=== PATIENT | male | born 1980 | race Caucasian/White ===

== ENCOUNTER 2016-12-08 05:32 | Emergency (ER) | payer OTHER ==
[2016-12-08] MEDS ORDERED: NORMAL SALINE 1000 ML 1,000 ML IV ONE (06:14)
[2016-12-08 07:16] LABS: ABSOLUTE BASOPHILS # (AUTO) 0.1 10^3/uL (0.0-0.2); ABSOLUTE EOSINOPHILS # (AUTO) 0.3 10^3/uL (0.0-0.6); ABSOLUTE LYMPHOCYTES (AUTO) 2.3 10^3/uL (0.5-4.7); ABSOLUTE MONOCYTES (AUTO) 0.7 10^3/uL (0.1-1.4); ABSOLUTE NEUT (AUTO) 5.2 10^3/uL (1.7-8.2); BASOPHILS % (AUTO) 1.1 % (0-2); EOSINOPHILS % (AUTO) 3.8 % (0-6); HEMATOCRIT 42.6 % (37.9-51.0); HGB HCT DIFFERENCE 2.4; LYMPHOCYTES % (AUTO) 26.6 % (13-45); MEAN CORPUSCULAR HEMOGLOBIN 32.9 pg (27.0-33.4); MEAN CORPUSCULAR HGB CONC 35.3 g/dL (32.0-36.0); MEAN CORPUSCULAR VOLUME 93 fl (80-97); MONOCYTES % (AUTO) 7.8 % (3-13); RED BLOOD COUNT 4.56 10^6/uL (4.35-5.55); RED CELL DISTRIBUTION WIDTH 13.2 % (11.5-14.0); SEGMENTED NEUTROPHILS % (AUTO) 60.7 % (42-78); WHITE BLOOD COUNT 8.6 10^3/uL (4.0-10.5)
[2016-12-08 07:23] LABS: APPEARANCE,URINE CLEAR; BILIRUBIN,URINE NEGATIVE (NEGATIVE); GLUCOSE, URINE NEGATIVE (NEGATIVE); KETONES,URINE NEGATIVE (NEGATIVE); LEUKOCYTE ESTERASE,URINE NEGATIVE (NEGATIVE); NITRITE,URINE NEGATIVE (NEGATIVE); PROTEIN,URINE NEGATIVE (NEGATIVE); URINE SPECIFIC GRAVITY 1.014
[2016-12-08 07:36] LABS: ALANINE AMINOTRANSFERASE 33 U/L (21-72); ALBUMIN 4.2 g/dL (3.5-5.0); ALKALINE PHOSPHATASE 58 U/L (38-126); ANION GAP 10 (5-19); ASPARTATE AMINO TRANSFERASE 21 U/L (17-59); BILIRUBIN,DIRECT 0.4 mg/dL (0.0-0.4); BILIRUBIN,TOTAL 0.5 mg/dL (0.2-1.3); BLOOD UREA NITROGEN 23 mg/dL (7-20); CALCIUM 10.1 mg/dL (8.4-10.2); CARBON DIOXIDE 28 mmol/L (22-30); CHLORIDE 105 mmol/L (98-107); CREATININE RESULT 0.77 mg/dL (0.52-1.25); GLUCOSE 91 mg/dL (75-110); POTASSIUM 4.6 mmol/L (3.6-5.0); SODIUM 142.7 mmol/L (137-145); TOTAL PROTEIN 6.9 g/dL (6.3-8.2)
[2016-12-08 07:37] LABS: URINE BARBITURATES SCREEN NEGATIVE; URINE METHADONE SCREEN NEGATIVE; URINE OPIATES LOW NEGATIVE; URINE PHENCYCLIDINE SCREEN NEGATIVE
[2016-12-08 07:38] LABS: ALCOHOL < 10 mg/dL (NONE DETECTED)
[2016-12-08] MEDS ORDERED: PREDNISONE 20 MG TABLET PO ONE (07:51)
--- NOTE | 2016-12-08 07:58 | ER Document Report ---
ED General - General Chief Complaint: Weakness Stated Complaint: DIZZY,NO BALANCE Time Seen by Provider: 12/08/16 06:13 TRAVEL OUTSIDE OF THE [place] IN LAST 30 DAYS: No - HPI Patient complains to provider of: Weakness dizziness Notes: Patient presents today for weakness and dizziness ongoing for months. Patient states has a history of MS patient states he was seeing neurology at [facility] however has not seen them for the last few months as that he does not like driving patient states he is to follow-up with a local neurologist Dr. Chavis however again has not seen him in a few months. Patient states he is to have problems with alcohol with chronic alcoholic denies any alcohol at this time. Patient states he is currently on the cannabinoid to help induce appetite patient states he has had some weight loss. Otherwise patient was able to ambulate into the ER without difficulty. Patient does family with a cane upon my evaluation patient alert oriented moving all 4 extremities no signs of any critical pathology denies fevers chills nausea vomiting diarrhea - Related Data Allergies/Adverse Reactions: Penicillins Allergy (Mild, Verified 12/08/16 05:35) unknown--difficulty breathing?? Past Medical History - Social History Smoking Status: Unknown if Ever Smoked Family History: Other - Father has PTSD Patient has suicidal ideation: No Patient has homicidal ideation: No - Past Medical History Cardiac Medical History: Denies: Hx Heart Attack, Hx Hypertension Pulmonary Medical History: Denies: Hx Asthma Neurological Medical History: Denies: Hx Cerebrovascular Accident, Hx Seizures Renal/ Medical History: Denies: Hx Peritoneal Dialysis GI Medical History: Denies: Hx Hepatitis, Hx Hiatal Hernia, Hx Ulcer Infectious Medical History: Denies: Hx Hepatitis Past Surgical History: Denies: Hx Open Heart Surgery, Hx Pacemaker - Immunizations Hx Diphtheria, Pertussis, Tetanus Vaccination: No Review of Systems - Review of Systems Constitutional: Weakness, Other - Dizziness EENT: No symptoms reported Cardiovascular: No symptoms reported Respiratory: No symptoms reported Gastrointestinal: No symptoms reported Genitourinary: No symptoms reported Male Genitourinary: No symptoms reported Musculoskeletal: No symptoms reported Skin: No symptoms reported Hematologic/Lymphatic: No symptoms reported Neurological/Psychological: No symptoms reported Physical Exam - Vital signs Vitals: Temp Pulse Resp BP Pulse Ox 97.7 F 75 18 133/80 H 99 12/08/16 05:36 12/08/16 05:36 12/08/16 05:36 12/08/16 05:36 12/08/16 05:36 Interpretation: Normal - General General appearance: Appears well, Alert - HEENT Head: Normocephalic, Atraumatic Eyes: Normal Pupils: PERRL - Respiratory Respiratory status: No respiratory distress Chest status: Nontender Breath sounds: Normal Chest palpation: Normal - Cardiovascular Rhythm: Regular Heart sounds: Normal auscultation Murmur: No - Abdominal Inspection: Normal Distension: No distension Bowel sounds: Normal Tenderness: Nontender Organomegaly: No organomegaly - Back Back: Normal, Nontender - Extremities General upper extremity: Normal inspection, Nontender, Normal color, Normal ROM , Normal temperature General lower extremity: Normal inspection, Nontender, Normal color, Normal ROM , Normal temperature, Normal weight bearing. No: Monik's sign - Neurological Neuro grossly intact: Yes Cognition: Normal Orientation: AAOx4 [place] Coma Scale Eye Opening: Spontaneous [place] Coma Scale Verbal: Oriented [place] Coma Scale Motor: Obeys Commands [place] Coma Scale Total: 15 Speech: Normal Motor strength normal: LUE, RUE, LLE, RLE Sensory: Normal Knee - Reflex grade: 2 = Normal - Psychological Associated symptoms: Normal affect, Normal mood - Skin Skin Temperature: Warm Skin Moisture: Dry Skin Color: Normal Course - Re-evaluation Re-evalutation: 12/08/16 13:28 Patient examinations otherwise negative. Will start patient on prednisone because this is a slight MS flare patient states he is on prednisone tapers in the past with the symptoms and has had great improvement patient also confirms that he will follow-up with his local neurologist here within the week. Patient otherwise look stable for discharge home - Vital Signs Vital signs: Temp Pulse Resp BP Pulse Ox 97.7 F 75 18 133/80 H 99 12/08/16 05:36 12/08/16 05:36 12/08/16 05:36 12/08/16 05:36 12/08/16 05:36 - Laboratory Result Diagrams: 12/08/16 06:55 12/08/16 06:55 Laboratory results interpreted by me: 12/08/16 06:55 BUN 23 H Discharge - Discharge Clinical Impression: Weakness, Dizziness Condition: Good Disposition: HOME, SELF-CARE Instructions: Weakness ([facility]), Dizziness ([facility]) Additional Instructions: Your laboratory values today did not show any signs of critical pathology. I highly recommend she follow-up with your primary care physician and your neurology team. We will start you on a dose of prednisone with the help out her symptoms. Return to ER symptoms worsen. Prescriptions: Prednisone [Deltasone] 60 mg PO DAILY #24 tablet Forms: Return to Work
[2016-12-08 08:10] VITALS: BP 118/79
== END 2016-12-08 08:10 | disposition home or self-care (01) ==
LOC: ER 05:32
DX: R53.1 Weakness (principal); R42 Dizziness and giddiness; Z88.0 Allergy status to penicillin; G35 Multiple sclerosis
CPT/HCPCS: 99285; 96360; 36415; 80307 ×2; 85025; 80053; 81001; J7512; J7030

== ENCOUNTER 2016-12-30 05:42 | Emergency (ER) | payer OTHER ==
[2016-12-30] MEDS ORDERED: PREDNISONE 20 MG TABLET PO ONE (07:27)
--- NOTE | 2016-12-30 07:28 | ER Document Report ---
HPI - HPI Patient complains to provider of: MS flare Onset: Other - 2 weeks Onset/Duration: Worse Quality of pain: Other - tightness Pain Level: 3 Context: Patient presents complaining of MS flareup for the past 2 weeks. Patient states that he was seen here several weeks ago with similar complaint. Patient states he was prescribed steroids and his symptoms initially improved but states that they started to return after he finished the steroids. Patient complains of bilateral posterior leg tightness to the thigh area that is worse when he ambulates. Patient denies any recent illness, fever or falls. Patient states that he has not followed up with neurology because he is attempting to get referral through the [place] [facility]. Patient states that he plans to go directly to the [place] [facility] office after his ER visit here today. Patient states that if they are not able to resolve the referral issues that he will see his local neurologist and follow his private insurance. Associated Symptoms: Other - Posterior thigh muscle tightness Exacerbated by: Walking. denies: Standing Relieved by: Remaining still Similar symptoms previously: Yes Recently seen / treated by doctor: Yes - ROS ROS below otherwise negative: Yes Systems Reviewed and Negative: Yes All other systems reviewed and negative - CONSTITUTIONAL Constitutional: DENIES: Fever - NEURO Neurology: DENIES: Weakness - CARDIOVASCULAR Cardiovascular: DENIES: Chest pain - GASTROINTESTINAL Gastrointestinal: DENIES: Nausea, Patient vomiting - MUSCULOSKELETAL Musculoskeletal: REPORTS: Extremity pain. DENIES: Back Pain, Swelling - DERM Skin Color: Normal Skin Problems: None Past Medical History - General Information source: Patient - Social History Smoking Status: Current Every Day Smoker Frequency of alcohol use: None Drug Abuse: Marijuana Occupation: none Lives with: Family Family History: Other - Father has PTSD - Past Medical History Cardiac Medical History: Denies: Hx Heart Attack, Hx Hypertension Pulmonary Medical History: Denies: Hx Asthma Neurological Medical History: Reports: Other - MS. Denies: Hx Cerebrovascular Accident, Hx Seizures Renal/ Medical History: Denies: Hx Peritoneal Dialysis GI Medical History: Denies: Hx Hepatitis, Hx Hiatal Hernia, Hx Ulcer Infectious Medical History: Denies: Hx Hepatitis Past Surgical History: Reports: Hx Tonsillectomy. Denies: Hx Open Heart Surgery , Hx Pacemaker - Immunizations Hx Diphtheria, Pertussis, Tetanus Vaccination: No Vertical Provider Document - CONSTITUTIONAL Agree With Documented VS: Yes Exam Limitations: No Limitations General Appearance: WD/WN, No Apparent Distress - INFECTION CONTROL TRAVEL OUTSIDE OF THE [place] IN LAST 30 DAYS: No - HEENT HEENT: Atraumatic, Normocephalic - NECK Neck: Normal Inspection, Supple. negative: Lymphadenopathy-Left, Lymphadenopathy-Right - RESPIRATORY Respiratory: Breath Sounds Normal, No Respiratory Distress, Chest Non-Tender O2 Sat by Pulse Oximetry: 97 - CARDIOVASCULAR Cardiovascular: Regular Rate, Regular Rhythm, No Murmur Pulses: Normal: Posterior tibial - BACK Back: Normal Inspection Notes: nontender - MUSCULOSKELETAL/EXTREMETIES Musculoskeletal/Extremeties: GEMA WILSON - NEURO Level of Consciousness: Awake, Alert, Appropriate Motor/Sensory: No Motor Deficit Notes: 3+ bilat patellar reflexes pt able to ambulate unassisted, gait steady - DERM Integumentary: Warm, Dry, No Rash Course - Re-evaluation Re-evalutation: 12/30/16 07:[address] Lawrence regarding patient presentation and diagnostic evaluation. Recommends placing a discharge planning referral in for patient, ordering CK and given additional course of steroids. Advises encouraging outpatient follow-up with neurology for further management. - Vital Signs Vital signs: Temp Pulse Resp BP Pulse Ox 98.0 F 68 16 118/77 97 12/30/16 05:46 12/30/16 05:46 12/30/16 06:01 12/30/16 05:46 12/30/16 05:46 - Laboratory Laboratory results interpreted by me: 12/30/16 08:47 Labs- Entire Visit 12/30/16 07:50 Creatine Kinase 92 Discharge - Discharge Clinical Impression: leg muscle tightness, Hx of multiple sclerosis Condition: Stable Disposition: HOME, SELF-CARE Instructions: Steroid Medication Additional Instructions: Return immediately for any new or worsening symptoms Followup with your primary care provider, call tomorrow to make a followup appointment Follow-up with a neurologist for further evaluation, call today for an appointment Prescriptions: Prednisone [Deltasone 10 mg Tablet] 10 mg PO ASDIR PRN #45 tablet PRN Reason: Referrals: SAMMY GREENE MD [Primary Care Provider] - Follow up as needed [facility] [Provider Group] - Follow up tomorrow
[2016-12-30 09:05] VITALS: BP 115/83
== END 2016-12-30 09:06 | disposition home or self-care (01) ==
LOC: ER 05:42
DX: G35 Multiple sclerosis (principal); F17.200 Nicotine dependence, unspecified, uncomplicated
CPT/HCPCS: 99283; 36415; 82550; J7512

== ENCOUNTER → 2017-09-22 | Outpatient (CLI) | payer OTHER ==
[2017-09-22 13:20] LABS: ABSOLUTE BASOPHILS # (AUTO) 0.1 10^3/uL (0.0-0.2); ABSOLUTE EOSINOPHILS # (AUTO) 0.3 10^3/uL (0.0-0.6); ABSOLUTE LYMPHOCYTES (AUTO) 1.6 10^3/uL (0.5-4.7); ABSOLUTE MONOCYTES (AUTO) 0.3 10^3/uL (0.1-1.4); ABSOLUTE NEUT (AUTO) 3.6 10^3/uL (1.7-8.2); BASOPHILS % (AUTO) 1.5 % (0-2); EOSINOPHILS % (AUTO) 5.4 % (0-6); HEMATOCRIT 45.6 % (37.9-51.0); HEMOGLOBIN 15.8 g/dL (13.5-17.0); LYMPHOCYTES % (AUTO) 27.4 % (13-45); MEAN CORPUSCULAR HEMOGLOBIN 31.9 pg (27.0-33.4); MEAN CORPUSCULAR HGB CONC 34.6 g/dL (32.0-36.0); MEAN CORPUSCULAR VOLUME 92 fl (80-97); MONOCYTES % (AUTO) 5.7 % (3-13); PLATELET COUNT 239 10^3/uL (150-450); RED BLOOD COUNT 4.95 10^6/uL (4.35-5.55); RED CELL DISTRIBUTION WIDTH 13.9 % (11.5-14.0); TOTAL CELLS COUNTED % (AUTO) 100 %
[2017-09-22 13:47] LABS: ALANINE AMINOTRANSFERASE 29 U/L (21-72); ALBUMIN 4.5 g/dL (3.5-5.0); ALKALINE PHOSPHATASE 69 U/L (38-126); ANION GAP 10 (5-19); ASPARTATE AMINO TRANSFERASE 20 U/L (17-59); BILIRUBIN,DIRECT 0.3 mg/dL (0.0-0.4); BILIRUBIN,TOTAL 0.6 mg/dL (0.2-1.3); BLOOD UREA NITROGEN 9 mg/dL (7-20); CALCIUM 9.8 mg/dL (8.4-10.2); CARBON DIOXIDE 30 mmol/L (22-30); CHLORIDE 106 mmol/L (98-107); GLUCOSE 105 mg/dL (75-110); POTASSIUM 5.2 mmol/L (3.6-5.0); SODIUM 146.3 mmol/L (137-145); TOTAL PROTEIN 7.4 g/dL (6.3-8.2)
== END ==
LOC: LAB 12:59
PROVIDERS: ATTEND Psychiatry & Neurology Neurology
DX: G35 Multiple sclerosis (principal)
CPT/HCPCS: 36415; 80053; 85025